=== PATIENT | female | born 1940 | race Caucasian/White ===

== ENCOUNTER 2016-08-03 05:58 | Day surgery (SDC) | payer MEDICARE ==
[2016-08-01 17:43] LABS: HEMATOCRIT 44.3 % (36.0-48.0); HEMOGLOBIN 14.5 g/dL (12.0-16.0)
--- NOTE | ~2016-08-03 | OP ---
Record Of Operation [facility] [address] [place]. [address] NAME: LACEY WINTERS : 44 STATUS : [facility]#: [id number] AGE: 75 ADM/REG DATE : 08/03/16 MR#: [id number] REPORT SERV DATE: 08/03/16 DICTATED BY: EULALIO XAVIER DATE: 08/03/16 REPORT STATUS : Draft TRANSCRIBED BY: MODL DATE: 08/03/16 DATE OF PROCEDURE: 08/03/2016 OPERATIVE PROCEDURE: Hysteroscopy, dilatation and curettage, removal of an endometrial polyp. PREOPERATIVE DIAGNOSES: 1. Postmenopausal bleeding. 2. Endometrial polyp. POSTOPERATIVE DIAGNOSES: 1. Postmenopausal bleeding. 2. Endometrial polyp. SURGEON: Eulalio Xavier M.D. ANESTHESIA: General anesthetic. FINDINGS: Within the endometrial cavity, there was a prominent polyp located in the left surface of the uterus. The lining of the endometrium was somewhat irregular. After removal of polyp and curettage, the endometrium had no further lesions. The uterus was modestly enlarged at about 6 week size. PROCEDURE: The patient was placed on the operating table in the supine position. After satisfactory general anesthesia, the patient was placed in the modified lithotomy position in the [employer]. Vagina and peritoneum were prepped and the patient was draped. Weighted speculum was placed in the vagina after examine under anesthesia. Anterior lip of the cervix was exposed and grasped with a single-tooth tenaculum. The cervix was initially dilated to 8 mm with Hegar dilators and single channel hysteroscope initially made available to ok and was used to view the endometrial cavity. Due to poor visualization, requested a hysteroscope with an in-flow and out-flow tract and operative capability. Second hysteroscope was obtained and uterine cavity now visualized. Photographs were made. The hysteroscope was removed and the cervix dilated up to 10 mm with Hegar dilators. Short curettage was performed with partial removal of the polyp. Additional exploration with polyp forceps resulted in complete polyp removal and additional sharp curettage resulted with removal of remaining tissue fragments within the endometrial cavity. Hysteroscope following completion of the D and C and polyp removal revealed a smooth endometrial cavity. The procedure was now complete. At this point, the hysteroscope was removed. The tenaculum was removed from the cervix and all instruments removed from the vagina. The patient then returned to the supine position. The estimated blood loss from the procedure was 150 mL. The patient was awakened from general anesthesia and transferred to the recovery room in good condition. [facility] Record Of [address] [address] NAME: LACEY WINTERS : 44 STATUS : [facility] PAT#: [id number] AGE: 75 ADM/REG DATE : 08/03/16 MR#: [id number] REPORT SERV DATE: 08/03/16 DICTATED BY: EULALIO XAVIER DATE: 08/03/16 REPORT STATUS : Draft TRANSCRIBED BY: YUMIKO DATE: 08/03/16 Eulalio Xavier MD / [id number] CC: MD Aubrey Pierre Gregory Joseph
[~2016-08-03 05:58] MED LIST: MONODOX50 MG PO; MULTIPLE VIT PO; VITAMIN D31000 UNIT PO
== END 2016-08-03 12:54 | disposition home or self-care (01) ==
LOC: SDC 05:58
PROVIDERS: Obstetrics & Gynecology
PROC: 0UDB8ZX Extraction of Endometrium, Via Natural or Artificial Opening Endoscopic, Diagnostic (ICD-10-PCS; principal; 2016-08-03 07:15)
DX: N95.0 Postmenopausal bleeding (principal); N84.0 Polyp of corpus uteri; Z88.1 Allergy status to other antibiotic agents; Z88.5 Allergy status to narcotic agent; Z88.8 Allergy status to other drugs, medicaments and biological substances; Z98.41 Cataract extraction status, right eye; Z98.42 Cataract extraction status, left eye; Z98.890 Other specified postprocedural states
CPT/HCPCS: 85014; 85018; 88305; 93005; J2250; J2405; J3010